=== PATIENT | female | born 1995 | race African-American/Black ===

== ENCOUNTER 2021-04-11 15:12 | Emergency (ER) | payer SELFPAY ==
[~2021-04-11] VITALS: Ht 185.4 cm; Wt 99.8 kg
[2021-04-11 16:25] VITALS: BP 119/81
[2021-04-11] MEDS ORDERED: cefTRIAXone SOD 1,000 MG VL IM ONE (16:30)
== END 2021-04-11 16:54 | disposition home or self-care (01) ==
LOC: ER 15:12
DX: J03.90 Acute tonsillitis, unspecified (principal); Z20.822 Contact with and (suspected) exposure to COVID-19
CPT/HCPCS: 36415; 87426; 96372; 99283; J0696

== ENCOUNTER 2022-04-06 14:46 | Emergency (ER) | payer SELFPAY ==
[~2022-04-06] VITALS: Ht 185.4 cm; Wt 115.0 kg
[2022-04-06 16:08] VITALS: BP 131/87
[2022-04-06] MEDS ORDERED: AZITTAB PO (16:46)
[2022-04-06] MEDS ORDERED: PROM1SOL4 PO (16:47)
== END 2022-04-06 17:12 | disposition home or self-care (01) ==
LOC: ER 14:46
DX: J02.9 Acute pharyngitis, unspecified (principal); Z20.822 Contact with and (suspected) exposure to COVID-19
CPT/HCPCS: 36415; 87426

== ENCOUNTER 2023-04-21 14:24 | Emergency (ER) | payer OTHER ==
[~2023-04-21] VITALS: Ht 188 cm; Wt 141.5 kg
[~2023-04-21 14:24] MED LIST: AZITTAB PO; PROM1SOL4 PO
[2023-04-21 14:58] LABS: Eosinophils # (auto) 0.1 10 ^3/uL (0-0.8); Eosinophils % (auto) 0.9 % (0.0-7.0); Hemoglobin 11.3 g/dL (12.2-16.2); Mean Corpuscular Hemoglobin 23.2 pg (28.0-32.0); Mean Corpuscular Hgb Conc. 31.3 g/dL (32.0-36.0); Monocytes # (auto) 0.7 10 ^3/uL (0-1.3); Red Blood Cells 4.86 10^6/uL (4.0-5.20); White Blood Cell 8.7 10^3/uL (4.4-10.8)
[2023-04-21 14:59] LABS: Basophils # (auto) 0 10 ^3/uL (0-0.2); Basophils % (auto) 0.5 % (0.0-2.0); Lymphocytes # (auto) 3.4 10 ^3/uL (0.4-5.4); Lymphocytes % (auto) 39.4 % (10.0-50.0); Monocytes % (auto) 8.4 % (0.0-12.0); Neutrophils # (auto) 4.4 10 ^3/uL (1.6-8.6); Neutrophils % (auto) 50.8 % (37.0-80.0); Nucleated Red Blood Cells % 0.1 %; Red Cell Distribution Width 16.5 % (11.8-14.3)
[2023-04-21 15:15] LABS: Alanine Aminotransferase 15 U/L (7-40); Albumin 4.4 g/dL (3.2-4.8); Alkaline Phosphatase 73 U/L (46-116); Anion Gap 6 (5-15); Aspartate Aminotransferase 13 U/L (13-40); Bilirubin, Total 0.4 mg/dL (0.2-1.0); Blood Urea Nitrogen 10 mg/dL (9-23); Calcium 9.2 mg/dL (8.7-10.4); Carbon Dioxide 27 mmol/L (20-30); Chloride 108 mmol/L (98-107); Glucose 81 mg/dL (74-106); Potassium 4.4 mmol/L (3.5-5.1); Sodium 141 mmol/L (136-145); Total Protein 6.9 g/dL (5.7-8.2)
[2023-04-21 15:33] LABS: INR 1.08 (0.9-1.15); Partial Thromboplastin Time 28.4 SEC (24.5-34.5); Prothrombin Time 11.5 sec (9.3-11.8)
[2023-04-21 19:08] LABS: Urine Bacteria NONE SEEN /hpf (None Seen); Urine Blood Negative /uL (Negative); Urine Clarity HAZY (Clear); Urine Color Yellow (Yellow); Urine Mucus FEW (None Seen); Urine Protein, UAD TRACE (Negative); Urine Specific Gravity 1.026 (1.001-1.035); Urine Urobilinogen Normal (Negative); Urine WBC 3 /hpf (0 - 5); Urine pH 5.5 (5.0-8.0)
[2023-04-21] MEDS ORDERED: NITR-87 PO (20:01)
[2023-04-21 20:48] VITALS: BP 118/63; PULSE 70; RESP 18; O2SAT 99
== END 2023-04-21 20:49 | disposition home or self-care (01) ==
LOC: ER 14:24
DX: R07.89 Other chest pain (principal)
CPT/HCPCS: 36415; 71045; 80053; 81001; 83735; 83880; 84484; 85025; 85610; 85730; 93005

== ENCOUNTER 2024-06-30 14:28 | Emergency (ER) | payer OTHER ==
[~2024-06-30] VITALS: Ht 185.4 cm; Wt 150.9 kg
[~2024-06-30 14:28] MED LIST changes: +NITR-87 PO
[2024-06-30 15:48] LABS: Basophils # (auto) 0 10 ^3/uL (0-0.2); Basophils % (auto) 0.4 % (0.0-2.0); Eosinophils # (auto) 0.1 10 ^3/uL (0-0.8); Eosinophils % (auto) 1.5 % (0.0-7.0); Hemoglobin 11.5 g/dL (12.2-16.2); Lymphocytes # (auto) 3.4 10 ^3/uL (0.4-5.4); Lymphocytes % (auto) 39.8 % (10.0-50.0); Mean Corpuscular Hemoglobin 22.9 pg (28.0-32.0); Mean Corpuscular Volume 73.8 fL (80.0-100.0); Monocytes # (auto) 0.6 10 ^3/uL (0-1.3); Monocytes % (auto) 7.6 % (0.0-12.0); Neutrophils # (auto) 4.3 10 ^3/uL (1.6-8.6); Neutrophils % (auto) 50.7 % (37.0-80.0); Platelet Count (auto) 172 10^3/uL (140-450); Red Blood Cells 5.02 10^6/uL (4.0-5.20); Red Cell Distribution Width 16.6 % (11.8-14.3); White Blood Cell 8.5 10^3/uL (4.4-10.8)
[2024-06-30 15:58] LABS: Chloride 105 mmol/L (98-107); Potassium 4.1 mmol/L (3.5-5.1); Sodium 141 mmol/L (136-145)
[2024-06-30 15:59] LABS: Anion Gap 5 (5-15); Calcium 10.1 mg/dL (8.7-10.4); Carbon Dioxide 31 mmol/L (20-31)
[2024-06-30 16:04] LABS: Blood Urea Nitrogen 13 mg/dL (9-23); Glucose 74 mg/dL (74-106)
--- NOTE | 2024-06-30 16:35 | DVH ---
EXAM: XY CHEST XRAY 1 VIEW HISTORY: cp COMPARISON: XY CHEST PORTABLE on DOS: 04/21/23 TECHNIQUE: Portable AP view of the chest was performed. FINDINGS: No pneumothorax, consolidative infiltrates, or pulmonary edema. The heart is not enlarged. There is mild relative elevation of the right hemidiaphragm, stable. IMPRESSION: No acute intrathoracic process.
--- NOTE | 2024-06-30 18:03 | ED.PDOC ---
HPI Comments 28-year-old female brought in by self complaining of chest tightness, onset around 11:00 a.m. today. Patient localizes the pain to the sternal area, states it is intermittent, no particular exacerbating or alleviating factors, mild at present. She denies any associated nausea, vomiting, diaphoresis, lightheadedness or shortness a breath. She denies any fever, cough or recent change in activity. States she was concerned because of a family history of heart disease. Chief Complaint: Chest Pain Time Seen by MD: 15:16 Primary Care Provider: UNKNOWN Allergies: Coded Allergies: NO KNOWN ALLERGIES (Unverified , 12/22/11) Home Meds Active Scripts Nitrofurantoin Monohydrate Mac (Macrobid) 100 Mg Cap, 100 MG PO BID for 5 Days, #10 CAP Prov:JULIANNA LIRA MD 04/21/23 Promethazine-Dm (Promethazine Dm 6.25-15 mg/5Ml) 1 Galina Galina, 5 ML PO Q6HP PRN, #120 ML Prov:CSA BROWN NP 04/06/22 Azithromycin (Zithromax Z-Denis) 250 Mg Tab, 250 MG PO DAILY for 5 Days, #6 TAB Take 2 tabs day 1, then 1tab day 2-5 Prov:CAS BROWN NP 04/06/22 Mode of Arrival: Ambulatory Past Medical History Past Medical History (Other): Migraines, obesity Surgical History: Denies all surgeries WATCH DIAL PRINTER History: Denies all WATCH DIAL PRINTER Hx Family History Family History: Family hx of Cancer, Family hx of heart milind Social History Smoker: Non-Smoker Alcohol: Occasionally Drugs: Denies Drug Use Lives In: Home All Other Systems: Reviewed and Negative (Comprehensive systems review obtained and negative except for what is stated in the HPI.) Physical Exam General Appearance: No Apparent Distress, Obese HEENT: PERRL/EOMI Neck: Full Range of Motion, Normal Inspection Respiratory: Chest Non-Tender, Lungs Clear, No Accessory Muscle Use, No Respiratory Distress, Normal Breath Sounds Cardiovascular: No Edema, No JVD, Regular Rate/Rhythm Breast Exam: Deferred Gastrointestinal: Non Tender, Soft Genitalia: Deferred Pelvic: Deferred Rectal: Deferred Extremities: Normal inspection, Normal range of motion, Non-tender, No pedal edema Neurologic: Alert (Oriented x4), Normal Affect, Normal Mood, Other (Ambulatory without difficulty. No gross focal deficit.) Cerebellar Function: NOT DONE Reflexes: NOT DONE Skin: Dry, Normal Color, Warm Lymphatic: NOT DONE EKG EKG #1: Comments Sinus rhythm, rate 83, normal intervals, normal axis, normal QRS, no ST/T changes. EKG #2: Comments Sinus rhythm, rate 85, normal intervals, normal axis, normal QRS, no ST/T changes. No significant change from EKG 1. Was a procedure done? Was a procedure done?: No CP Differential Dx Differential Diagnosis: Angina, Anxiety / Panic Attack, PA, Pulmonary Embolus Differential Diagnosis: CHF Differential Diagnosis: Esophageal reflux/spasm, Gastritis, Pericarditis X-Ray, Labs, Meds, VS Vital Signs Date Time Temp Pulse Resp B/P (MAP) Pulse Ox O2 Delivery O2 Flow Rate FiO2 06/30/24 15:16 85 06/30/24 14:41 98.5 80 17 138/75 (96) 99 06/30/24 14:38 83 Lab Test 06/30/24 15:36 06/30/24 14:44 Range/Units Troponin I High Sensitivity < 3 L < 3 L </=34 ng/L White Blood Count 8.5 4.4-10.8 10^3/uL Red Blood Count 5.02 4.0-5.20 10^6/uL Hemoglobin 11.5 L 12.2-16.2 g/dL Hematocrit 37.0 36.0-46.0 % Mean Corpuscular Volume 73.8 L 80.0-100.0 fL Mean Corpuscular Hemoglobin 22.9 L 28.0-32.0 pg Mean Corpuscular Hemoglobin Concent 31.0 L 32.0-36.0 g/dL Red Cell Distribution Width 16.6 H 11.8-14.3 % Platelet Count 172 140-450 10^3/uL Mean Platelet Volume 10.4 6.9-10.8 fL Neutrophils (%) (Auto) 50.7 37.0-80.0 % Lymphocytes (%) (Auto) 39.8 10.0-50.0 % Monocytes (%) (Auto) 7.6 0.0-12.0 % Eosinophils (%) (Auto) 1.5 0.0-7.0 % Basophils (%) (Auto) 0.4 0.0-2.0 % Neutrophils # (Auto) 4.3 1.6-8.6 10 ^3/uL Lymphocytes # (Auto) 3.4 0.4-5.4 10 ^3/uL Monocytes # (Auto) 0.6 0-1.3 10 ^3/uL Eosinophils # (Auto) 0.1 0-0.8 10 ^3/uL Basophils # (Auto) 0 0-0.2 10 ^3/uL Nucleated Red Blood Cells 0.0 % Sodium Level 141 136-145 mmol/L Potassium Level 4.1 3.5-5.1 mmol/L Chloride Level 105 98-107 mmol/L Carbon Dioxide Level 31 20-31 mmol/L Anion Gap 5 5-15 Blood Urea Nitrogen 13 9-23 mg/dL Creatinine 0.81 0.550-1.02 mg/dL Glomerular Filtration Rate Calc 101 >90 mL/min BUN/Creatinine Ratio 16.0 10.0-20.0 Serum Glucose 74 74-106 mg/dL Calcium Level 10.1 8.7-10.4 mg/dL B-Type Natriuretic Peptide 8.40 0-100 pg/mL Beta HCG, Quantitative 0.7 L 1.5-4.2 mIU/mL PROCEDURE(s): CXR1 - CHEST XRAY 1 VIEW REASON: cp ORDER NUMBER(s): [id number], ACCESSION NUMBER(s): [id number] EXAM: XY CHEST XRAY 1 VIEW HISTORY: cp COMPARISON: XY CHEST PORTABLE on DOS: 04/21/23 TECHNIQUE: Portable AP view of the chest was performed. FINDINGS: No pneumothorax, consolidative infiltrates, or pulmonary edema. The heart is not enlarged. There is mild relative elevation of the right hemidiaphragm, stable. IMPRESSION: No acute intrathoracic process. X-Ray, Labs, Meds, VS Comment 28-year-old female with a history of obesity and migraines brought in by self complaining of chest tightness Vitals unremarkable Exam unremarkable Rhythm strip independently interpreted by me: Sinus rhythm, rate 85, no ectopy. Chest x-ray unremarkable CBC, metabolic panel, hCG, BNP and 2 serial troponins unremarkable for any abnormality of acute significance Patient declined any pain medications in the ED, stating she was not in pain, she was just feeling tightness in her chest. This was tolerable. Patient's heart score is 1, PERC criteria are satisfied so I am not concerned for PE. Patient appears stable for discharge with close outpatient follow-up with her primary physician. Time of 1ST Reevaluation: 18:02 Reevaluation 1ST: Unchanged Patient Education/Counseling: Diagnosis, Treatment, Need For Follow Up Family Education/Counseling: No Family Present Departure 1 Departure Time of Disposition: 18:02 Impression: Primary Impression: Chest pain with low risk for cardiac etiology Disposition: 01 HOME / SELF CARE / HOMELESS Condition: Stable Additional Instructions: Your blood tests, including screening test for heart attack and heart failure, were unremarkable. Your EKG was normal. Your chest x-ray was normal. Follow- up with your primary doctor in 1-2 days for referral to a special assets officer for further evaluation. Discharged With: Self Critical Care Note Critical Care Time?: No Stability Stability form required: No Heart Score Heart Score: Heart Score Response (Comments) Value History Slightly Suspicious 0 EKG Normal 0 Age <45 0 Risk Factors 1 or 2 risk factors 1 Troponin Normal limit 0 Total 1 OLEGARIO NEAL MD Jun 30, 2024 18:03
[2024-06-30 18:23] VITALS: BP 104/72; PULSE 91; RESP 18; TEMP 97.8; O2SAT 96
--- NOTE | 2024-07-01 13:47 | ECG ---
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
--- NOTE | 2024-07-01 15:16 | ECG ---
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
== END 2024-06-30 18:25 | disposition home or self-care (01) ==
LOC: ER 14:28
DX: R07.89 Other chest pain (principal); Z79.899 Other long term (current) drug therapy
CPT/HCPCS: 36415; 71045; 80048; 83880; 84484; 84702; 85025; 93005